=== PATIENT | female | born 1955 | race Caucasian/White ===

== ENCOUNTER 2017-07-17 15:13 | Emergency (ER) | payer BC ==
[2017-07-17 15:43] VITALS: BP 105/63
--- NOTE | 2017-07-17 16:13 | UC ---
FLU HPI - HPI Summary HPI Summary: 61 y/o previous healthy female, h/o tob use 2 years ago presents with 0- cough, non-productive, "fits", extreme fatigue, fevers low grade 100-101, chills, rib pain from coughing, decreased sleep from coughing, sob, wheezing. self- employed, unable to work. symptoms x 3 weeks, worsening. - History of Current Complaint Chief Complaint: UCRespiratory Stated Complaint: COLD,COUGH,CONGESTION Time Seen by Provider: 07/17/17 15:48 Hx Obtained From: Patient Hx Last Menstrual Period: stopped 2002 ?: No Onset/Duration: Gradual Onset, Lasting Weeks, Worse Since - daily Severity Currently: Mild Severity Initially: Moderate Pain Intensity: 5 Pain Scale Used: 0-10 Numeric - Allergy/Home Medications Allergies/Adverse Reactions: Allergies Allergy/AdvReac Type Severity Reaction Status Date / Time propoxyphene [From Darvon] Allergy Nausea And Verified 07/17/17 15:43 Vomiting Home Medications: Home Medications Vitamin B Complex TAB* [Complex B-100*] 1 tab PO DAILY 07/17/17 [History Confirmed 07/17/17] PMH/Surg Hx/FS Hx/Imm Hx Previously Healthy: Yes - h/o tob use 2 years ago, h/o pna 6 yrs ago - Surgical History Surgical History: Yes Surgery Procedure, Year, and Place: appendectomy. ovary - r/t cyst. ovary removed - Family History Known Family History: Positive: None, Hypertension Negative: Cardiac Disease, Diabetes - Social History Alcohol Use: None Substance Use Type: None Smoking Status (MU): Former Smoker Type: Cigarettes Amount Used/How Often: 1/3 PPD Review of Systems Constitutional: Fever, Chills, Fatigue ENT: Ear Ache, Nasal Discharge, Sinus Congestion, Sinus Pain/Tenderness Respiratory: Shortness Of Breath, Cough Motor: Weakness Musculoskeletal: Myalgia Neurological: Headache - frontal Is Patient Immunocompromised?: No All Other Systems Reviewed And Are Negative: Yes Physical Exam Triage Information Reviewed: Yes Appearance: No Pain Distress, Well-Nourished, Ill-Appearing - mild Vital Signs: Initial Vital Signs Temp 98.1 F 07/17/17 15:37 Pulse 102 07/17/17 15:37 Resp 18 07/17/17 15:37 BP 105/63 07/17/17 15:37 Pulse Ox 95 07/17/17 15:37 Eyes: Positive: Conjunctiva Clear, Other: - emoi ENT: Positive: Pharynx normal, TM dull - Left side only, TM red - Left side only , Uvula midline. Negative: Tonsillar swelling, Tonsillar exudate Neck: Positive: Supple, Nontender, Enlarged Nodes @ - submand b/l Respiratory: Positive: Chest non-tender, Normal breath sounds, No respiratory distress, No accessory muscle use, Crackles - b/l Lower lobes, Rhonchi - b/l Lower lobes, Wheezing - b/l Lower lobes. Negative: Respiratory distress, Decreased breath sounds, Accessory muscle use Cardiovascular: Positive: RRR, No Murmur, Tachycardia - mild Abdomen Description: Positive: Nontender, No Organomegaly, Soft. Negative: CVA Tenderness (R), CVA Tenderness (L) Neurological Exam: Normal Psychological Exam: Normal Skin Exam: Normal Flu Course/Dx - Course Course Of Treatment: CXR- negative, ABX given, follow up with PCP as needed - Differential Dx/Diagnosis Differential Diagnosis/HQI/PQRI: Bronchitis, Pneumonia Provider Diagnoses: acute otitis media, L. CAP Discharge - Discharge Plan Condition: Good Disposition: HOME Prescriptions: Albuterol HFA INHALER* [Ventolin HFA Inhaler*] 1 - 2 puff INH Q4H PRN #1 mdi PRN Reason: Shortness Of Breath Levofloxacin TAB* [Levaquin TAB*] 750 mg PO DAILY #7 tab Patient Education Materials: Ear Infection (ED), Acute Bronchitis (ED) Referrals: Padma Bearden MD [Primary Care Provider] - Additional Instructions: - Increase fluid intake - Increase rest - Go to ER with neck pain, fever > 104, increased headache, posterior ear pain - antibitoics as directed - FOllow up with PCP within 3-4 days if no improvement - albuterol inhaler 1-2 putss every 4-6 hours as needed for shortness of breath
--- NOTE | 2017-07-17 16:30 | RAD ---
HISTORY: Wheezing, rhonchi, cough COMPARISONS: December 29, 2015 VIEWS: 4: Frontal dual-energy and lateral views of the chest. FINDINGS: CARDIOMEDIASTINAL SILHOUETTE: The cardiomediastinal silhouette is normal. EMEKA: The emeka are normal. PLEURA: The costophrenic angles are sharp. No pleural abnormalities are noted. LUNG PARENCHYMA: The lungs are clear. ABDOMEN: The upper abdomen is clear. There is no subphrenic gas. BONES AND SOFT TISSUES: There is a scoliotic curvature of the spine. OTHER: None. IMPRESSION: NO ACTIVE CARDIOPULMONARY DISEASE.
== END 2017-07-17 16:39 | disposition home or self-care (01) ==
LOC: UCEAST 15:13
DX: H66.92 Otitis media, unspecified, left ear (principal); J18.9 Pneumonia, unspecified organism; Z88.5 Allergy status to narcotic agent; Z87.891 Personal history of nicotine dependence
CPT/HCPCS: 71046; 99212; G0463

== ENCOUNTER 2018-09-03 18:04 | Emergency (ER) | payer BC ==
[2018-09-03 18:19] VITALS: BP 153/86
[2018-09-03] MEDS ORDERED: Tetracaine 0.5% OPTH.SOL 4 ML* 1 DROP BTL ONE (18:20)
[2018-09-03] MEDS ORDERED: Fluorescein Sodium TOPICAL* 1 MG TEST STRIP OPHTHALMIC ONE (18:21)
[2018-09-03] MEDS ORDERED: BSS OPTH.SOL* BTL OPHTHALMIC ONE (18:21)
--- NOTE | 2018-09-03 19:03 | UC ---
Eye Complaint HPI - HPI Summary HPI Summary: 2 days ago she got swiped in the left eye by a branch while riding horse---eye remained red and irritated---without visual deficits until today she developed "cobwebs and floaters in her vision"--- - History of Current Complaint Chief Complaint: UCEye Stated Complaint: LT EYE INJURY Time Seen by Provider: 09/03/18 18:20 Hx Obtained From: Patient Hx Last Menstrual Period: stopped 2002 ?: No Onset/Duration: Sudden Onset, Lasting Days - 2, Worse Since - today Timing: Constant Pain Intensity: 6 Pain Scale Used: 0-10 Numeric Location of Injury: Conjunctiva Character: Foreign Body Sensation Aggravating Factor(s): Light Alleviating Factor(s): Nothing Associated Signs And Symptoms: Positive: Drainage (Clear) - Allergies/Home Medications Allergies/Adverse Reactions: Allergies Allergy/AdvReac Type Severity Reaction Status Date / Time propoxyphene [From Darvon] Allergy Nausea And Verified 09/03/18 18:19 Vomiting Home Medications: Home Medications Ibuprofen TAB* [Advil TAB*] 200 mg PO Q6H PRN 09/03/18 [History Confirmed ] PMH/Surg Hx/FS Hx/Imm Hx Previously Healthy: Yes - Surgical History Surgical History: Yes Surgery Procedure, Year, and Place: appendectomy. ovary - r/t cyst. ovary removed - Family History Known Family History: Positive: None, Hypertension Negative: Cardiac Disease, Diabetes - Social History Occupation: Employed Full-time Lives: With Family Alcohol Use: None Substance Use Type: None Smoking Status (MU): Former Smoker Type: Cigarettes Amount Used/How Often: 1/3 PPD When Did the Patient Quit Smoking/Using Tobacco: 3 years Review of Systems All Other Systems Reviewed And Are Negative: Yes Constitutional: Positive: Negative Skin: Positive: Negative Eyes: Positive: Blurred Vision, Drainage, Eye Redness, Other - "cobwebed floaters" Left eye ENT: Positive: Negative Respiratory: Positive: Negative Cardiovascular: Positive: Negative Gastrointestinal: Positive: Negative Genitourinary: Positive: Negative Motor: Positive: Negative Neurovascular: Positive: Negative Musculoskeletal: Positive: Negative Neurological: Positive: Negative Psychological: Positive: Negative Is Patient Immunocompromised?: No Physical Exam Triage Information Reviewed: Yes Appearance: Well-Appearing, Well-Nourished, Pain Distress - mild Vital Signs: Initial Vital Signs Temp 99.3 F 09/03/18 18:13 Pulse 88 09/03/18 18:13 Resp 16 09/03/18 18:13 BP 153/86 09/03/18 18:13 Pulse Ox 98 09/03/18 18:13 Vital Signs Reviewed: Yes Eye Exam: Normal Eyes: Positive: Conjunctiva Clear - right, Conjunctiva Inflamed - left, Discharge - clear from left eye, Other: - perrla, eom intact visual nuno equal both eyes, ENT Exam: Normal ENT: Positive: Normal ENT inspection, Hearing grossly normal. Negative: Trismus , Muffled voice, Hoarse voice Dental Exam: Normal Neck exam: Normal Neck: Positive: Supple, Nontender, No Lymphadenopathy Respiratory Exam: Normal Respiratory: Positive: Chest non-tender, No respiratory distress, No accessory muscle use Cardiovascular Exam: Normal Cardiovascular: Positive: RRR, Pulses Normal, Brisk Capillary Refill Musculoskeletal Exam: Normal Musculoskeletal: Positive: Strength Intact, ROM Intact, No Edema Neurological Exam: Normal Neurological: Positive: Alert, Muscle Tone Normal Psychological Exam: Normal Skin Exam: Normal Re-Evaluation - Re-Evaluation First Eval Change: Unchanged - eye stained without evidence of abrasion, ulceration--did get pain relief with tetracaine but floaters and vision changes remainded consistant Eye Complaint Course/Dx - Course Course Of Treatment: will drive her to [facility] for further evaluation - Differential Dx/Diagnosis Provider Diagnosis: Iritis of left eye, Retinal defect Discharge - Sign-Out/Discharge Documenting (check all that apply): Patient Departure All imaging exams completed and their final reports reviewed: No Studies - Discharge Plan Condition: Fair Disposition: HOME-RECOMMEND TO ED Patient Education Materials: Iritis (ED), Retinal [place] (ED) Referrals: Padma Bearden MD [Primary Care Provider] - Additional Instructions: Please go directly to [facility] [place] for complete evaluation of your eye injury - Billing Disposition and Condition Condition: FAIR Disposition: Home-Recommend to ED
== END 2018-09-03 19:09 | disposition home health service (06) ==
LOC: UCEAST 18:04
DX: H20.9 Unspecified iridocyclitis (principal); H35.89 Other specified retinal disorders; Z88.5 Allergy status to narcotic agent; Z87.891 Personal history of nicotine dependence
CPT/HCPCS: 99212; A9270-GY; G0463